=== PATIENT | male | born 1960 | race Caucasian/White ===

== ENCOUNTER 2019-09-24 10:24 | Emergency (ER) | payer OTHER ==
[~2019-09-24] VITALS: Ht 170.2 cm; Wt 72.9 kg
[2019-09-24 11:16] LABS: BASO % 0.3 % (0.0-1.0); EOS % 0.1 % (0.0-3.0); HEMATOCRIT 34.8 % (42.0-52.0); HEMOGLOBIN 11.8 g/dl (13.5-17.5); LYMPH # 0.9 10^3/uL (1.5-5.0); LYMPH % 6.5 % (24.0-44.0); MEAN CORPUSCULAR HEMOGLOBIN 31.7 pg (27.0-33.0); MEAN CORPUSCULAR HGB CONC 33.9 g/dl (32.0-36.5); MEAN CORPUSCULAR VOLUME 93.5 fl (80.0-96.0); MONO # 0.9 10^3/uL (0.0-0.8); NEUTROPHILS # 12.3 10^3/uL (1.5-8.5); NEUTROPHILS % 86.5 % (36.0-66.0); PLATELET COUNT, AUTOMATED 448 10^3/uL (150-450); RED BLOOD COUNT 3.72 10^6/uL (4.30-6.10); WHITE BLOOD COUNT 14.3 10^3/uL (4.0-10.0)
[2019-09-24] MEDS ORDERED: ISOVUE-370 76% 100ML VIAL (Q9967) As Ordered ONE (11:22)
[2019-09-24] MEDS ORDERED: ALLO100T (11:22)
[2019-09-24] MEDS ORDERED: IPRA0.00 (11:22)
[2019-09-24] MEDS ORDERED: VENTAER (11:22)
[2019-09-24] MEDS ORDERED: MAGN500T2 (11:22)
[2019-09-24 11:27] LABS: INR 1.29; PROTHROMBIN TIME 15.8 SECONDS (11.8-14.0)
[2019-09-24 11:49] LABS: ALBUMIN 1.7 GM/DL (3.2-5.2); ALT/SGPT 52 U/L (12-78); BILIRUBIN,DIRECT < 0.1 MG/DL (0.0-0.2); BILIRUBIN,TOTAL 0.3 MG/DL (0.2-1.0); CK-MB VALUE MASS < 1.0 NG/ML (<3.6); CPK CREATINE PHOSPHOKINASE 20 U/L (39-308); FREE T4 1.27 NG/DL (0.76-1.46); NT-PRO BNP 592 PG/ML (<125); THYROID STIMULATING HORMONE 0.664 uIU/ML (0.358-3.740); TOTAL PROTEIN 6.8 GM/DL (6.4-8.2); TROPONIN I < 0.02 NG/ML (< 0.10)
--- NOTE | 2019-09-24 12:21 | REP ---
Clinical: Necrotizing pneumonia. Technique: Axial contrast enhanced images from the thoracic inlet to the upper abdomen with coronal and sagittal re-formations using 100 ml Isovue 370 intravenous contrast material. Comparison: None. Findings: There is a large area of consolidation involving the right middle lobe with central low density cavitary lesions containing a complex material and gas suggesting abscess sees and necrotizing components. Innumerable large bilateral lung masses are also appreciated measuring roughly up to 8 cm maximal diameter along with scattered smaller ill-defined bilateral nodular changes and reticulonodular opacities. Mediastinal and hilar adenopathy noted. No effusion. No pneumothorax. Atherosclerotic changes to the thoracic aorta without aneurysm or dissection. Pulmonary vasculature is grossly normal. Heart and pericardium are within normal limits. Limited upper abdomen demonstrates normal bilateral adrenal glands. Impression: Marked pulmonary findings as described above. Findings most concerning for malignancy/neoplasm. No prior examination available for comparison. Correlation with history and pulmonary consultation. Electronically Signed by Simone Van MD 09/24/2019 12:12 P
[2019-09-24 13:15] VITALS: BP 95/58
[2019-09-24 13:39] LABS: OSMOLALITY SERUM 272 MOSM/KG (275-295)
--- NOTE | 2019-09-24 14:43 | ER ---
DATE OF CONSULTATION: 09/24/2019 The patient seen at the request of Dr. 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 HISTORY OF PRESENT ILLNESS: The patient is a 59-year-old white male who noticed thick masses a year ago last summer. These were eventually diagnosed as head and neck carcinoma. He underwent chemotherapy. He continues to have in the last few months pleuritic-type chest pain, particularly in the right lateral anterior chest. It does hurt when he takes a deep breath. More importantly, it is constant. He takes ibuprofen 600-800 at a clip every 6 hours as needed. He has a cough with [id number] sputum production. He has had a fever up to 100.6. He denies sweats or rigor. He does feel chilly quite often. Since November, he has lost approximately 100 pounds of weight. Solid food dysphagia. He continues nutrition with liquid concentrates and supplements, including Ensure and Boost. He has increasing fatigue. He has not noticed any seizure-type activity or tremors. He does get short of breath at night, and sometimes he even awakens at night short of breath. He does also have trouble lying flat but not consistently. He denies swelling in his legs. PAST MEDICAL HISTORY: Chronic obstructive pulmonary disease (COPD), diabetes, hyperlipidemia, and hypertension. PAST SURGICAL HISTORY: None. MEDICATIONS AT HOME: - Ventolin four times a day as needed shortness of breath - allopurinol 100 mg every day - ipratropium albuterol nebulizers every 6 hours as needed shortness of breath - magnesium oxide 500 mg every day OCCUPATIONAL HISTORY: Worked in [employer] here in [place]. TRAVEL HISTORY: He was in the and has been to the [facility] and to [place]. HABITS: Smokes one pack per day of reservation cigarettes. He no longer imbibes alcohol. FAMILY HISTORY: Not pertinent to the acute situation. REVIEW OF SYSTEMS: CONSTITUTIONAL: See history of present illness (HPI). EYES: Without diplopia. Without amaurosis fugax. Without prior jaundice. MOUTH: Has head and neck cancer with tumors compressing his esophagus. PULMONRARY: See HPI. CARDIAC: See HPI. No history of myocardial infarctions. He does have orthopnea and paroxysmal nocturnal dyspnea but probably not of cardiac origin. GASTROINTESTINAL (GI): Without nausea, vomiting, diarrhea, constipation, melena, hematochezia, or hematemesis. GENITOURINARY (): Without dysuria or hematuria or history of renal stones. NEUROLOGIC: Without paresthesias, paralyses, or prior seizures. ENDOCRINE: With diabetes. Without thyroid disease. PSYCHIATRIC: Without pathological anxieties, depressions, or psychoses. PHYSICAL EXAMINATION: A well-developed underweight male, looking chronically ill. VITAL SIGNS: Temperature is 99.7 with a heart rate of 106 with a respiratory rate of 18 without the use of accessory muscles who is 91% saturated on room air and whose blood pressure is 100/58. EYES: Pupils equal, round, and reactive to light. Extraocular movements intact. Sclerae anicteric. NOSE: Without deformity. MOUTH: Shows his mucous membranes to be pink and moist. Lips and commissures without lesions. NECK: Is supple. He has bilateral masses in both sides of his neck with the left being greater than the right. I do not see jugular venous distention. LUNGS: Show bilateral wheezing during expiration, particularly in the lower lobes. He has some faint crackles during inspiration. Percussion notes are full to the diaphragm. CARDIAC EXAMINATION: Is without murmurs, clicks, gallops, or rubs. I cannot feel his point of maximal impulse (PMI). S1 and S2 are normal. ABDOMEN: Is nontender. Bowel sounds are positive. There is no hepatomegaly, no costovertebral angle (CVA) tenderness. EXTREMITIES: Show no pretibial edema. No calf tenderness. No differential swelling of the upper extremities. SKIN: Is warm, dry, and perfused without cyanosis or mottling, including that of the nail beds and the knees. NEUROLOGICAL: Cranial nerves II-XII intact, along with gross motor and gross sensation intact. Gait is not tested. PSYCHIATRIC: Shows him to be awake and alert and oriented times three with appropriate mood and affect and conversational. His white count is 14.3 with hemoglobin and hematocrit of 11.8 and 34.8, respectively. Platelet count is 448, and differential shows 86% neutrophils, 6% lymphocytes, and 6% monocytes. There are no immature forms. No toxic granulations. His sodium is 124 with a potassium of 3.9 and a chloride of 84 and a total CO2 of 33. BUN and creatinine are 13 and 0.5. Blood gases show pH 7.50, pO2 of 52, and a CO2 of 40. I am not sure whether this is venous gas or an arterial gas. I suspect it is venous. AST and ALT are normal. Albumin is 1.7 with an ionized calcium of 4.4. TSH is 0.664. His CT scan shows numerous lung masses throughout both right and left lungs with the right much greater than the left. These are fairly large, measuring in the 7 to 4 cm range. The right middle lobe has an air fluid level within it. It looked like necrotic tumor or postobstructive necrosis. The entire middle lobe is consolidated. There is no subcutaneous emphysema. I do not see mediastinal emphysema. In comparison to his chest CT done at [facility] on 09/05/2019, the cavity with the air fluid level is markedly decreased. There was again complete consolidation of the middle lobe. The CT at [place] does not show mediastinal emphysema. There is a small diameter at the esophagus. IMPRESSION: 1. 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 2. Either tumor necrosis or postobstructive pneumonia necrosis of right middle lobe with cavity lesion. 3. Tobacco abuse, continuing. 4. Diabetes. 5. Hypertension. 6. Chronic obstructive pulmonary disease. 7. Hyponatremia. 8. Malnutrition. PLAN AND DISCUSSION: I have had a phone call with Dr. Veras. I think that his hyponatremia is better treated by his oncologic team rather than being admitted here. He has no neurologic symptomatology. I have asked the patient to check on his appointment with Dr. Veras for continued followup. I see no reason why chemotherapy cannot be administered from a pulmonary point of view. The real decision point will be his functional status, which seems pretty good at this point in time. He does need nutrition, and he is trying to get as much nutrition as he can with dietary supplements. I will, therefore, discharge him from the emergency room to followup with oncology.
--- NOTE | 2019-09-24 20:29 | ECGEPIP ---
[facility] - ED Test Date: 2019-09-24 Pat Name: JORDYN SMITH Department: Room: - Gender: Male Supervisor [employer]: BLU : 1960 Requested By: Chrissy Angeles Order Number: [id number] Reading MD: Marciano Chatterjee Measurements Intervals [place] Rate: 111 P: 76 OK: 129 QRS: 75 QRSD: 81 T: 65 QT: 314 QTc: 428 Interpretive Statements SINUS TACHYCARDIA LAE NONSPECIFIC ST T WAVE CHANGES DELAYED R WAVE PROGRESSION LOW QRS VOLTAGE LIMB LEADS ABNORMAL RHYTHM ECG NO PRIOR ECG FOR COMPARISON Electronically Signed on 09-24-2019 20:29:10 EDT by Marciano Chatterjee
--- NOTE | 2019-09-25 10:35 | ED PDOC ---
Post-Departure Follow-Up ree bowman ffaxed formal report of ct chest for fu falgunig Marciano Chatterjee MD Sep 25, 2019 10:35
== END 2019-09-24 13:16 | disposition home or self-care (01) ==
LOC: M ED 10:24
DX: C76.0 Malignant neoplasm of head, face and neck (principal); R91.8 Other nonspecific abnormal finding of lung field; E87.1 Hypo-osmolality and hyponatremia; E46 Unspecified protein-calorie malnutrition; R07.9 Chest pain, unspecified; I10 Essential (primary) hypertension; E11.9 Type 2 diabetes mellitus without complications; J44.9 Chronic obstructive pulmonary disease, unspecified; E78.5 Hyperlipidemia, unspecified; F17.210 Nicotine dependence, cigarettes, uncomplicated; Z79.899 Other long term (current) drug therapy
CPT/HCPCS: 36600; 71260; 80047; 80076; 82550; 82553; 82803; 83605; 83880; 83930; 84439; 84443; 84484; 85025; 85610; 87040; 87486; 87581; 87633; 87798; 93005; 93041; 99285; Q9967